=== PATIENT | female | born 1960 | race African-American/Black ===

== ENCOUNTER 2017-01-16 10:05 | Emergency (ER) | payer BC ==
[2017-01-16 10:41] LABS: BASOPHILS % 0.9 (0.0-1.5); EOSINOPHILS % 2.5 % (0.0-6.8); MEAN CORPUSCULAR HEMOGLOBIN 28.2 pg (28.0-34.0); MEAN CORPUSCULAR VOLUME 88.7 fl (80.0-100.0); MONOCYTES % 4.8 % (0.0-11.0); NEUTROPHILS # 1.9 # k/uL (1.4-7.7)
[2017-01-16 11:02] LABS: eGFR (African) > 60; eGFR (Non-African) > 60
--- NOTE | 2017-01-16 11:42 | ED Physician Documentation ---
Upper Extremity Problem - HISTORIAN Historian: patient - HPI Stated Complaint: left arm pain Chief Complaint: Upper Extremity Problem Additional Information: [place] nervous, her upper inner left arm started hurting like someone was squeezing it. then she started worrying and getting short of breath and anxious, and so she pulled over and called 911. Her arm pain has eased . she appears comfortable, no distress. Location: L arm Onset: hours Timing: better Duration: constant Recent Injury: No Severity: mild Associated Symptoms: shortness of breath Exacerbated By: nothing Relieved By: nothing Quality: pain Further Comments: no - ROS CONST: no problems EYES/ENT: none CVS/RESP: shortness of breath GI/: none MS/SKIN/LYMPH: denies: calf pain, joint pain NEURO/PSYCH: denies: headache, dizziness - PAST HX Past History: none Other History: hyperlipidemia, hypertension Surgeries/Procedures: none Allergies/Adverse Reactions: Allergies Allergy/AdvReac Type Severity Reaction Status Date / Time Sulfa (Sulfonamide Allergy Verified 01/16/17 10:20 Antibiotics) Home Medications: Ambulatory Orders Medication Instructions Recorded Atorvastatin Calcium [Atorvastatin 10 mg PO HS 01/16/17 Calcium] amLODIPine BESYLATE [Norvasc] 10 mg PO HS 01/16/17 - SOCIAL HX Smoking History: cigarettes Alcohol Use: occasionally Drug Use: none - FAMILY HX Family History: none - VITAL SIGNS Vital Signs: Vital Signs Temp Pulse Resp BP Pulse Ox 98.2 F 54 L 20 147/66 99 01/16/17 10:07 01/16/17 10:07 01/16/17 10:07 01/16/17 10:07 01/16/17 10:07 - REVIEWED ASSESSMENTS Nursing Assessment Reviewed: Yes Vitals Reviewed: Yes Progress - Results/Orders Results/Orders: Her Trop I is elev .08, her computer ECG interpret says nonspecific T wave abnormality. I spoke with Dr Hester, cardiology at [facility] he wants her transferred there. When I spoke to her about it, she said she would not go by ambulance, but would drive herself there. I tried to convince her otherwise, but she sais she would just leave. I asked a nurse to go speak with her and try to convince her to let EMS take her. - Progress Progress: RN spent time talking to her and convinced her to go by EMS. Will transfer to [facility]. - EKG/XRAY/CT EKG: nonspecific ST T wave chg ED Results Lab/Radiology - Lab Results Lab Results: Lab Results 01/16/17 01/16/17 01/16/17 10:35 10:35 10:35 WBC RBC Hgb Hct MCV MCH MCHC RDW Plt Count Neut % (Auto) Lymph % (Auto) [place] % (Auto) Eos % (Auto) Baso % (Auto) Neut # (Auto) Lymph # (Auto) [place] # (Auto) Eos # (Auto) Baso # (Auto) Reactive Lymphs % Reactive Lymphs # PT 10.3 Seconds Seconds (9.4-11.6) INR 0.98 (0.9-1.2) D-Dimer 123 ng/mL ng/mL (6.0-682) Carbon Dioxide 27 mmol/L mmol/L (20-32) BUN 12 mg/dL mg/dL (10-26) Creatinine 0.7 mg/dL mg/dL (0.4-1.5) Estimated Creat Clear 358 Est GFR ( Amer) > 60 (60 - ) Est GFR (Non-Af Amer) > 60 (60 - ) Glucose 131 mg/dL H mg/dL (70-99) Calcium 9.6 mg/dL mg/dL (8.5-10.5) Total Bilirubin 0.4 mg/dL mg/dL (0.2-1.2) AST 18 U/L U/L (0-41) ALT 24 U/L U/L (0-45) Alkaline Phosphatase 77 U/L U/L (46-116) Creatine Kinase 148 U/L U/L (0-225) Troponin I 0.08 ng/mL H ng/mL (0.03-0.06) NT-Pro-B Natriuret Pep 18.8 pg/mL pg/mL (15.0-125.0) Total Protein 7.2 g/dL g/dL (6.0-8.5) Albumin 4.3 g/dL g/dL (3.0-5.5) 01/16/17 10:35 WBC 5.40 K/ul K/ul (4.00-12.00) RBC 4.58 M/ul M/ul (3.90-5.20) Hgb 12.9 g/dL g/dL (12.0-16.0) Hct 40.6 % % (34.5-46.5) MCV 88.7 fl fl (80.0-100.0) MCH 28.2 pg pg (28.0-34.0) MCHC 31.8 g/dL g/dL (30.0-36.0) RDW 12.9 % % (11.3-14.3) Plt Count 176 K/mm3 K/mm3 (130-400) Neut % (Auto) 35.7 % L % (39.0-79.0) Lymph % (Auto) 54.0 % H % (16.0-50.0) [place] % (Auto) 4.8 % % (0.0-11.0) Eos % (Auto) 2.5 % % (0.0-6.8) Baso % (Auto) 0.9 (0.0-1.5) Neut # (Auto) 1.9 # k/uL # k/uL (1.4-7.7) Lymph # (Auto) 2.9 # k/uL # k/uL (0.6-4.0) [place] # (Auto) 0.3 # k/uL # k/uL (0.0-0.9) Eos # (Auto) 0.1 # k/uL # k/uL (0.0-0.6) Baso # (Auto) 0.0 # k/uL # k/uL (0.0-0.5) Reactive Lymphs % 2.1 % % (0.0-5.0) Reactive Lymphs # 0.1 # k/uL # k/uL (0.0-0.8) PT INR D-Dimer Carbon Dioxide BUN Creatinine Estimated Creat Clear Est GFR ( Amer) Est GFR (Non-Af Amer) Glucose Calcium Total Bilirubin AST ALT Alkaline Phosphatase Creatine Kinase Troponin I NT-Pro-B Natriuret Pep Total Protein Albumin - Orders Orders: ED Orders Category Date Time Status CHEST P.A.&LAT 2 VIEWS [RAD] Stat Exams 01/16/17 Taken BNP [NT-proBNP] Stat Lab 01/16/17 10:35 Completed CBC/PLATELET/DIFF Routine Lab 01/16/17 10:35 Completed CMP Routine Lab 01/16/17 10:35 Completed CREATINE KINASE Routine Lab 01/16/17 10:35 Completed D DIMER Stat Lab 01/16/17 10:35 Completed PT-INR Routine Lab 01/16/17 10:35 Completed TROPONIN I (cTnI) Stat Lab 01/16/17 10:35 Completed EKG WITH COMPARISON Stat Ther 01/16/17 Ordered Upper Extremity Problem - EXAM General Appearance: no acute distress, alert Skin: warm/dry, normal color Shoulder Exam: normal inspection, non-tender, no evidence of injury Elbow/Forearm Exam: normal inspection, non-tender, no evidence of injury Wrist Exam: normal inspection, non-tender, no evidence of injury Hand Exam: normal inspection, non-tender, no evidence of injury Neuro/Tendon: normal sensation, normal motor functions EENT: ENT inspection normal, no signs of dehydration CVS: heart sounds normal, equal pulses, no murmur, bradycardia Vascular: no vascular compromise. No: abnml capillary refill Peripheral: sensation nml, motor nml Central: oriented X3, mood/affect nml, cognition normal Respiratory: no resp. distress, breath sounds nml. No: distinct pain on movement Abdomen: non-tender Discharge Clincal Impression: Elevated troponin I level, Bradycardia Hypertension Qualifiers: Hypertension type: essential hypertension Qualified Code(s): I10 - Essential ( primary) hypertension Coronary artery disease Qualifiers: Coronary Disease-Associated Artery/Lesion type: unspecified vessel or lesion type [place] vs. transplanted heart: [place] heart Associated angina: angina presence unspecified Qualified Code(s): I25.10 - Atherosclerotic heart disease of [place] coronary artery without angina pectoris Dyspnea Qualifiers: Dyspnea type: unspecified Qualified Code(s): R06.00 - Dyspnea, unspecified Referrals: Primary Doctor,No [Primary Care Provider] - 2 Days Home Medications: Ambulatory Orders Atorvastatin Calcium [Atorvastatin Calcium] 10 mg PO HS 01/16/17 amLODIPine BESYLATE [Norvasc] 10 mg PO HS 01/16/17 Condition: Stable Disposition: 02 XFER [id number] HOSP Decision to Admit: NO Date of Decison to Admit: 01/16/17 Decision Time: 11:41
[2017-01-16] MEDS ORDERED: ASPIRIN 81 MG CHEW TAB ONE (11:43)
[2017-01-16] MEDS ORDERED: ASPIRIN 325 MG TABLET PO ONE (11:43)
[2017-01-16 12:21] VITALS: BP 185/68
--- NOTE | 2017-01-16 14:43 | Diagnostic Imaging Report ---
RAS MARCH [facility] [address] [facility] [address] [address] Report Submission Date: Jan 16, 2017 11:01:45 AM CDT Patient Study Name: DESMOND MEJIA Date: Jan 16, 2017 10:32:48 AM CDT Modality Type: CR Gender: F Description: CHEST : 64 Institution: [facility] Physician: RAS MARCH Chest - two views Clinical history: Shortness of breath. Findings: Examination of the chest in PA and lateral views with no prior films for comparison demonstrates the lungs to be clear. The cardiovascular and mediastinal silhouettes are within normal limits. Monitor leads superimpose the chest. Impression: 1. Negative chest. Electronically signed on Jan 16, 2017 11:01:45 AM CDT by: Avi TRENT
[2017-01-16] MEDS ORDERED: ATORVASTATIN CALCIUM 10 MG PO SCH (21:00)
== END 2017-01-16 12:19 | disposition short-term general hospital (02) ==
LOC: ED 10:05
DX: R00.1 Bradycardia, unspecified (principal); I10 Essential (primary) hypertension; I25.10 Atherosclerotic heart disease of native coronary artery without angina pectoris; R06.00 Dyspnea, unspecified
CPT/HCPCS: 71020; 80051; 80053; 82550; 83880; 84484; 85025; 85379; 85610; A9270; 99284; S1016